=== PATIENT | female | born 1995 | race American Indian/Alaskan Native ===

== ENCOUNTER 2017-11-27 07:54 | Emergency (ER) | payer OTHER ==
[2017-11-27 09:01] VITALS: BP 123/83
[2017-11-27 09:45] LABS: Basophils # (Auto) 0.1 K/mm3 (0.0-0.1); Basophils % (Auto) 0.4 % (0.0-1.8); Eosinophils % (Auto) 0.1 % (0.0-4.3); Hematocrit 40.7 % (30.3-42.9); Hemoglobin 13.6 gm/dl (10.1-14.3); Lymphocytes # (Auto) 0.7 K/mm3 (1.2-5.4); Lymphocytes % (Auto) 5.9 % (13.4-35.0); Mean Corpuscular HGB Conc 33 % (30-34); Mean Corpuscular Hemoglobin 30 pg (28-32); Mean Corpuscular Volume 89 fl (79-97); Monocytes # (Auto) 0.6 K/mm3 (0.0-0.8); Monocytes % (Auto) 4.7 % (0.0-7.3); Platelet Count 189 K/mm3 (140-440); Red Blood Count 4.55 M/mm3 (3.65-5.03); Red Cell Distribution Width 12.8 % (13.2-15.2)
[2017-11-27 10:04] LABS: Alanine Aminotransferase 8 units/L (7-56); Albumin 4.6 g/dL (3.9-5); BUN/Creatinine Ratio 20; Blood Urea Nitrogen 10 mg/dL (7-17); Calcium 8.8 mg/dL (8.4-10.2); Hemolysis Index 9
[2017-11-27] MEDS ORDERED: ZOFRAN ODT PO ONE (11:22)
[2017-11-27] MEDS ORDERED: TYLENOL PO ONE (11:22)
--- NOTE | 2017-11-27 11:39 | Emergency Department Report ---
HPI - General Chief Complaint: Abdominal Pain Time Seen by Provider: 11/27/17 11:22 - HPI HPI: The patient is 22-year-old female presents for evaluation of abdominal pain. The patient reports epigastric abdominal pain since 4 AM this morning, constant since onset, crampy in quality, moderate, 5/10 in severity, exacerbated with retching. She is also associated nausea and vomiting 2 episodes, and loose watery stools. The patient denies chest pain, dyspnea, blood in the stools, black tarry stools, recent antibiotic use, travel outside the country, exposure to raw or uncooked seafood, reheated foods, untreated water, unpasteurized dairy , or reptilian pets including lizards, frogs, or snakes. ED Past Medical Hx - Past Medical History Previous Medical History?: No - Surgical History Past Surgical History?: No - Social History Smoking Status: Never Smoker Substance Use Type: Alcohol - Medications Home Medications: Home Medications Medication Instructions Recorded Confirmed Last Taken Type Acetaminophen/Codeine [Tylenol #3] 1 tab PO Q6H PRN #10 tab 11/27/17 Unknown Rx Ondansetron [Zofran TAB] 4 mg PO Q8HR PRN #20 tablet 11/27/17 Unknown Rx ED Review of Systems ROS: Stated complaint: ABDOMINAL PAIN Other details as noted in HPI Constitutional: denies: fever ENT: denies: throat or neck pain Respiratory: denies: cough, shortness of breath Cardiovascular: denies: chest pain Endocrine: denies unexplained weight loss or gain Gastrointestinal: reports abdominal pain, nausea Genitourinary: denies: dysuria Musculoskeletal: denies: leg swelling Skin: denies: rash Neurological: denies: headache Hematological/Lymphatic: denies: easy bleeding or easy bruising Psych: denies sadness or hopelessness Physical Exam - Physical Exam Vital Signs: Vital Signs 11/27/17 08:59 Temperature 98.4 F Pulse Rate 93 H Respiratory 16 Rate Blood Pressure 123/83 O2 Sat by Pulse 98 Oximetry Physical Exam: General: well-nourished, well-developed, no acute distress Head: Normocephalic, atraumatic Eyes: normal sclera ENT: Mucous membranes are pale and dry Neck: No neck stiffness, no cervical adenopathy Respiratory: Breath sounds equal bilaterally, no wheezing, rales, or rhonchi Cardio: S1 and S2 present, no murmurs, rubs, gallops, capillary refill is delayed Abdomen: Normoactive bowel sounds, soft abdomen, epigastric tenderness to palpation present, no rigidity, no guarding or rebound tenderness Chest WALL/Back: no CVA tenderness with percussion Musc: No pitting edema Skin: No rash Neuro: no facial drooping, normal speech Psych: Normal affect ED Course Vital Signs 11/27/17 08:59 Temperature 98.4 F Pulse Rate 93 H Respiratory 16 Rate Blood Pressure 123/83 O2 Sat by Pulse 98 Oximetry ED Medical Decision Making - Lab Data Result diagrams: 11/27/17 09:31 11/27/17 09:31 - Medical Decision Making The patient was seen and examined by myself. The patient is placed on a monitoring analyst and continuous pulse ox. On initial evaluation, the patient was found to be in no distress. Evaluation orders are placed. The patient is given a tablet of Zofran for nausea and Tylenol for pain. Lab results were non-concerning including mild leukocytosis, WBC 12, and nml hemoglobin, hematocrit, electrolytes, renal function, LFTs, lipase, urinalysis, and negative test. Evaluation findings are consistent with likely gastroenteritis. The patient was reevaluated and reported that their symptoms were markedly improved. The patient is stable for discharge with outpatient follow-up. The patient is given follow-up and return instructions. The patient expressed understanding and agreed with the plan. The patient is discharged in stable condition. Critical care attestation.: If time is entered above; I have spent that time in minutes in the direct care of this critically ill patient, excluding procedure time. ED Disposition Clinical Impression: Abdominal pain, acute, epigastric, Nausea and vomiting in adult Diarrhea Qualifiers: Diarrhea type: unspecified type Qualified Code(s): R19.7 - Diarrhea, unspecified Disposition: - TO HOME OR SELFCARE Is pt being admited?: No Does the pt Need Aspirin: No Condition: Stable Instructions: Gastroenteritis (ED), Food Poisoning (ED), Abdominal Pain (ED), Nutrition Tips for Relief of Diarrhea (ED) Prescriptions: Acetaminophen/Codeine [Tylenol #3] 1 tab PO Q6H PRN #10 tab PRN Reason: Pain Ondansetron [Zofran TAB] 4 mg PO Q8HR PRN #20 tablet PRN Reason: Nausea Referrals: PRIMARY CARE, [Primary Care Provider] - 3-5 Days Time of Disposition: 12:00
[2017-11-27 11:48] LABS: HCG Qualitative,Urine Negative (Negative)
[2017-11-27 11:51] LABS: Bacteria,Urine 1+ /HPF (Negative); Bilirubin,Urine NEG (Negative); Blood,Urine NEG (Negative); Color,Urine Yellow (Yellow); Mucus,Urine 2+ /HPF; Nitrite,Urine NEG (Negative); Protein,Urine <15 mg/dL mg/dL (Negative); Urobilinogen,Urine < 2.0 mg/dL (<2.0)
== END 2017-11-27 12:11 | disposition home or self-care (01) ==
LOC: ED 07:54
DX: R10.13 Epigastric pain (principal); R19.7 Diarrhea, unspecified; R11.2 Nausea with vomiting, unspecified
CPT/HCPCS: 36415; 80053; 81001; 81025; 85025; 99283; Q0162

== ENCOUNTER 2019-02-15 17:52 | Outpatient (CLI) | payer MEDICAID ==
[2019-02-15] MEDS ORDERED: LACTATED RINGERS 500 ML IV ONE (18:11)
[2019-02-15 18:24] VITALS: BP 110/64
[2019-02-15 19:04] LABS: Bacteria,Urine 2+ /HPF (Negative); Bilirubin,Urine NEG (Negative); Blood,Urine NEG (Negative); Color,Urine Colorless (Yellow); Protein,Urine <15 mg/dL mg/dL (Negative); Urobilinogen,Urine < 2.0 mg/dL (<2.0)
== END 2019-02-15 19:48 | disposition home or self-care (01) ==
LOC: TRG 17:52
PROVIDERS: ATTEND Obstetrics & Gynecology
DX: O60.03 Preterm labor without delivery, third trimester (principal); O26.893 Other specified pregnancy related conditions, third trimester; M79.605 Pain in left leg; Z3A.31 31 weeks gestation of pregnancy
CPT/HCPCS: 81001; J7120; 59025

== ENCOUNTER 2019-04-09 08:05 | Outpatient (CLI) | payer MEDICAID ==
[2019-04-09 08:37] VITALS: BP 106/68
== END 2019-04-09 11:03 | disposition home or self-care (01) ==
LOC: TRG 08:05
PROVIDERS: ATTEND Obstetrics & Gynecology
DX: O47.1 False labor at or after 37 completed weeks of gestation (principal); Z3A.38 38 weeks gestation of pregnancy

== ENCOUNTER 2019-04-10 01:16 | Inpatient (IN) | payer MEDICAID ==
[2019-04-10] MEDS ORDERED: LACTATED RINGERS 1,000 ML ONE (02:12)
[2019-04-10] MEDS ORDERED: STADOL IV PRN (02:36)
[2019-04-10] MEDS ORDERED: BRETHINE IVP PRN (02:36)
[2019-04-10] MEDS ORDERED: BRETHINE SUB-Q PRN (02:36)
[2019-04-10] MEDS ORDERED: SUBLIMAZE IV PRN (02:36)
[2019-04-10] MEDS ORDERED: XYLOCAINE 2% INFILTRATI ONE ×3 (02:36→06:18)
[2019-04-10] MEDS ORDERED: NARCAN 0.4 MG/1 ML IV PRN (02:36)
[2019-04-10] MEDS ORDERED: MINERAL OIL PO PRN (02:36)
[2019-04-10] MEDS ORDERED: ZOFRAN IV PRN ×2 (02:36→09:26)
--- NOTE | 2019-04-10 02:42 | History and Physical Report ---
History of Present Illness Date of examination: 04/10/19 Date of admission: 04/10/19 02:28 Chief complaint: contractions History of present illness: Pt is a 24 year old female SHYANNE 04/18/19 at 38w6d who presents with regular contractions and advanced cervical dilation of 8 cm. She denies leakage of fluid or vaginal bleeding. She has had care at [facility] since 11 wks complicated by chlamydia treated with negative test of cure. She is GBS negative. Past History Past Medical History: no pertinent history Past Surgical History: no surgical history [employer]ER History: chlamydia (treated with negative test of cure ) Family/Genetic History: cancer Social history: no significant social history - Obstetrical History Expected Date of Delivery: 04/18/19 Actual Gestation: 38 Week(s) 6 Day(s) : 2 Para: 0 Hx # Term Pregnancies: 0 Number of Pregnancies: 0 Spontaneous Abortions: 0 Induced : 1 Number of Living Children: 0 Medications and Allergies Allergies Allergy/AdvReac Type Severity Reaction Status Date / Time No Known Allergies Allergy Verified 11/27/17 09:02 Home Medications Medication Instructions Recorded Confirmed Last Taken Type Acetaminophen/Codeine [Tylenol #3] 1 tab PO Q6H PRN #10 tab 11/27/17 Unknown Rx Ondansetron [Zofran TAB] 4 mg PO Q8HR PRN #20 tablet 11/27/17 Unknown Rx Review of Systems All systems: negative - Vital Signs Vital signs: Vital Signs Pulse BP 103 H 126/70 04/10/19 01:49 04/10/19 01:49 Temp Pulse Resp BP Pulse Ox 98.3 F 103 H 18 126/70 04/10/19 01:51 04/10/19 01:51 04/10/19 01:51 04/10/19 01:51 - Physical Exam Breasts: Positive: deferred Cardiovascular: Regular rate Lungs: Positive: Clear to auscultation Abdomen: Positive: soft (gravid ) Genitourinary (Female): Positive: normal external genitalia Uterus: Positive: enlarged (gravid ) Extremities: Positive: normal - Obstetrical FHR: auscultation normal Uterine Contraction Monitor Mode: External Cervical Dilatation: 8 Cervical Effacement Percentage: 90 (bulging bag ) station: -1 Uterine Contraction Pattern: Regular Uterine Tone Measurement Phase: Resting Uterine Contraction Intensity: Strong/Firm Results All other labs normal. Assessment and Plan A: IUP at 38w6d Active labor Chlamydia treated with negative test of cure GBS Negative P: Admit to labor and delivery Pt requests epidural Routine intrapartum care
[2019-04-10 02:54] LABS: Hematocrit 30.9 % (30.3-42.9); Hemoglobin 10.2 gm/dl (10.1-14.3); Mean Corpuscular HGB Conc 33 % (30-34); Mean Corpuscular Volume 79 fl (79-97); Platelet Count 153 K/mm3 (140-440); Red Cell Distribution Width 15.3 % (13.2-15.2)
[2019-04-10] MEDS ORDERED: PITOCin/NS 20 UNIT/1000ML DRIP 20 UNITS/1,000 ML BAG IV SCH ×2 (03:00→09:26)
[2019-04-10] MEDS ORDERED: LACTATED RINGERS 1,000 ML IV SCH (03:00)
[2019-04-10] MEDS ORDERED: PITOCin/NS 30 UNIT/500ML 30 UNITS/500 ML BAG IV SCH (03:00)
[2019-04-10] MEDS ORDERED: NARCAN 2 MG/2 ML IV PRN (03:27)
--- NOTE | 2019-04-10 03:27 | Anesthesia Consultation ---
Anesthesia Consult and Med Hx Date of service: 04/10/19 - Airway Anesthetic Teeth Evaluation: Good ROM Head & Neck: Adequate Mental/Hyoid Distance: Adequate Mallampati Class: Class II Intubation Access Assessment: Probably Good - Pre-Operative Health Status ASA Pre-Surgery Classification: ASA2 Proposed Anesthetic Plan: Epidural, Spinal - Pulmonary Hx Asthma: No COPD: No Hx Pneumonia: No - Cardiovascular System Hx Hypertension: No - Central Nervous System Hx Seizures: No Hx Psychiatric Problems: No - Endocrine Hx Renal Disease: No Hx End Stage Renal Disease: No Hx Hypothyroidism: No Hx Hyperthyroidism: No - Hematic Hx Anemia: No Hx Sickle Cell Disease: No - Other Systems Hx Alcohol Use: No
--- NOTE | 2019-04-10 03:50 | Event Note ---
Date: 04/10/19 Pt comfortable with epidural. Category II tracing. SVE: /-1. AROM-clear. Routine intrarpartum management.
[2019-04-10] MEDS ORDERED: fentaNYL-BUPIV 2 MCG/ML-0.125% 200 MCG/100 ML BAG EPIDURAL SCH (04:00)
[2019-04-10] MEDS ORDERED: METHERGINE IM ONE ×2 (05:55→06:18)
--- NOTE | 2019-04-10 06:19 | Procedure Note ---
OB Delivery Note - Delivery Date of Delivery: 04/10/19 Surgeon: TODD MCCABE Estimated blood loss: other (600 mL) - Vaginal Delivery presentation: vertex Delivery position: OA Intrapartum events: mult.variable deceleratio, hemorrhage, uterine atony (Given Methergine 0.2 mg IM ) Delivery induction: none Delivery augmentation: rupture of membranes, pitocin Delivery monitor: external FHT, external uterine Route of delivery: Delivery placenta: spontaneous Delivery cord: 3 umbilical vessels Episiotomy: none Delivery laceration: 2nd degree Delivery repair: vicryl Anesthesia: local, epidural - Infant A at 1 minute: 8 at 5 minutes: 9 Infant Gender: Male (2282g (6lb 6oz) @ 0535 am)
[2019-04-10] MEDS ORDERED: PHENERGAN PR PRN (09:26)
[2019-04-10] MEDS ORDERED: DERMOPLAST TP PRN (09:26)
[2019-04-10] MEDS ORDERED: TUCKS PAD TP PRN (09:26)
[2019-04-10] MEDS ORDERED: PHENERGAN PO PRN (09:26)
[2019-04-10] MEDS ORDERED: SODIUM CHLORIDE FLUSH SYRINGE 10 ML IV NR (09:26)
[2019-04-10] MEDS ORDERED: BENADRYL PO PRN (09:26)
[2019-04-10] MEDS ORDERED: LANSINOH TP PRN (09:26)
[2019-04-10] MEDS ORDERED: TYLENOL PO PRN (09:26)
[2019-04-10] MEDS: NORCO 5/325 PO PRN ×2 (09:55→21:45)
[2019-04-10] MEDS: FEOSOL PO SCH ×2 (09:55→21:45)
[2019-04-10] MEDS ORDERED: DULCOLAX PR PRN (11:00)
[2019-04-10] MEDS: COLACE PO SCH ×2 (11:00→21:45)
[2019-04-10 17:43] LABS: Hematocrit 24.6 % (30.3-42.9); Hemoglobin 8.4 gm/dl (10.1-14.3)
[2019-04-10] MEDS: IBUPROFEN PO SCH (18:35)
[2019-04-10] MEDS ORDERED: MILK OF MAGNESIA PO PRN (22:00)
[2019-04-11] MEDS: IBUPROFEN PO SCH ×4 (00:44→20:21)
[2019-04-11] MEDS ORDERED: M-M-R II VACCINE SUB-Q ONE (08:00)
[2019-04-11] MEDS ORDERED: BOOSTRIX IM ONE (09:00)
--- NOTE | 2019-04-11 12:04 | Progress Note ---
Assessment and Plan A: 1. PPD 1 2. Vital signs stable 3. Iron deficiency anemia 4. Need for support P: Continue current care, anticipate discharge to home tomorrow. consult ordered Subjective - Subjective Date of service: 04/11/19 Principal diagnosis: day 1 Interval history: Pt is day 1 s/p at term and PPH, EBL 600cc. Patient reports: appetite normal, voiding normally, pain well controlled, ambulating normally : doing well, bottle feeding (Pt desires to breast feed) Objective - Vital Signs Latest vital signs: Vital Signs Temp Pulse Resp BP Pulse Ox 04/11/19 09:49 97.9 F 92 H 18 117/71 99 04/11/19 06:31 18 04/11/19 01:44 18 04/11/19 00:44 18 04/10/19 23:44 98.2 F 94 H 20 103/64 97 04/10/19 22:45 18 04/10/19 21:45 18 04/10/19 19:35 18 04/10/19 16:11 98.0 F 74 18 111/73 99 04/10/19 12:24 98.2 F 78 22 111/64 97 Intake and Output 04/10/19 04/11/19 04/11/19 23:59 07:59 15:59 Intake Total 960 960 Output Total 550 Balance 410 960 Intake: Oral 480 960 Intake, Free Water 480 Output: Urine 550 Void 550 Other: Total, Intake Amount 240 720 Total, Output Amount 550 # Voids Void 1 2 - Exam Breasts: Present: deferred Lungs: Present: Normal air movement Abdomen: Present: normal appearance, soft Uterus: Present: normal, firm, fundal height at umbilicus Extremities: Present: normal - Labs Labs: Abnormal lab results 04/10/19 Range/Units 17:30 Hgb 8.4 L (10.1-14.3) gm/dl Hct 24.6 L D (30.3-42.9) %
--- NOTE | 2019-04-11 12:56 | Discharge Summary ---
Providers - Providers Date of Admission: 04/10/19 02:28 Date of discharge: 04/12/19 Attending physician: TODD MCCABE 04/11/19 10:39 Consult to V Belt Inspector [CONS] Stat Reason For Exam: Primary care physician: TODD MCCABE Hospitalization Reason for admission: active labor Delivery: Episiotomy: none Laceration: 2nd degree Other procedures: none complications: uterine atony ( hemorrhage) Discharge diagnosis: IUP at term delivered Condition at discharge: Good Disposition: DC-01 TO HOME OR SELFCARE Plan - Discharge Medications Prescriptions: Docusate Sodium [Colace CAP] 100 mg PO BID #30 capsule Ferrous Sulfate [Feosol 325 MG tab] 325 mg PO BID 30 Days #60 tablet Ibuprofen [Motrin 600 MG tab] 600 mg PO Q6HR 30 Days #60 tablet Glycerin/Witch Tania Pad [Tucks Pad] 1 each TP PRN PRN #1 box PRN Reason: Hemorrhoid/cleansing/soothing - Provider Discharge Summary Additional instructions: [] Smoking cessation referral if applicable(refer to patient education folder for contact #) [] Refer to [facility] Booklet Call your doctor immediately for: * Fever > 100.5 * Heavy vaginal bleeding ( >1 pad per hour) * Severe persistent headache * Shortness of breath * Reddened, hot, painful area to leg or breast * Drainage or odor from incision. * Keep incision clean and dry at all times and follow doctor's instructions regarding bathing/showering - Follow up plan Follow up: TODD MCCABE MD [Primary Care Provider] - 6 Weeks (Please call to schedule appointment for 4-6 weeks .)
[2019-04-11] MEDS: FEOSOL PO SCH ×2 (13:01→22:14)
[2019-04-11] MEDS: COLACE PO SCH ×2 (13:01→22:14)
--- NOTE | 2019-04-11 14:33 | Post Anesthesia Evaluation ---
- Post Anesthesia Evaluation Patient Participated: Yes Airway Patent: Yes Stable Respiratory Function: Yes Nausea/Vomiting: No Temp > 96.8F: Yes Pain Manageable: Yes Adequeate Hydration: Yes Anesthesia Complications: No Block Receding Appropriately: Yes Patient on Ventilator: No
[2019-04-12] MEDS: IBUPROFEN PO SCH ×2 (06:24)
[2019-04-12 07:58] VITALS: BP 112/62
[2019-04-12] MEDS: COLACE PO SCH (09:30)
[2019-04-12] MEDS: FEOSOL PO SCH (09:30)
== END 2019-04-12 12:40 | disposition home or self-care (01) | DRG 774 ==
LOC: TRG 01:16 → LD 02:28 → OB 08:05
PROVIDERS: ADMIT Obstetrics & Gynecology; ATTEND Obstetrics & Gynecology
PROC: 10E0XZZ Delivery of Products of Conception, External Approach (ICD-10-PCS; principal; 2019-04-10)
PROC: 0KQM0ZZ Repair Perineum Muscle, Open Approach (ICD-10-PCS; 2019-04-10)
PROC: 10907ZC Drainage of Amniotic Fluid, Therapeutic from Products of Conception, Via Natural or Artificial Opening (ICD-10-PCS; 2019-04-10)
PROC: 3E0R3BZ Introduction of Anesthetic Agent into Spinal Canal, Percutaneous Approach (ICD-10-PCS; 2019-04-10)
PROC: 00HU33Z Insertion of Infusion Device into Spinal Canal, Percutaneous Approach (ICD-10-PCS; 2019-04-10)
DX: O76 Abnormality in fetal heart rate and rhythm complicating labor and delivery (principal); O72.1 Other immediate postpartum hemorrhage; Z37.0 Single live birth; O70.1 Second degree perineal laceration during delivery; O90.81 Anemia of the puerperium; D50.9 Iron deficiency anemia, unspecified; Z3A.38 38 weeks gestation of pregnancy
CPT/HCPCS: 36415; 85014; 85018; 85027; 86592; 86850; 86900; 86901; G0378; J2210; J2590; J7120

== ENCOUNTER 2021-03-15 07:01 | Emergency (ER) | payer MEDICAID, OTHER ==
[2021-03-15] MEDS ORDERED: diphenhydrAMINE 50 MG/ML VIAL IV ONE (07:23)
[2021-03-15] MEDS ORDERED: SODIUM CHLORIDE 0.9% 1000 ML 1,000 ML IV ONE (07:23)
[2021-03-15] MEDS ORDERED: METOCLOPRAMIDE 10 MG/2 ML INJ IV ONE (07:23)
[2021-03-15] MEDS ORDERED: FAMOTIDINE 20 MG/2 ML INJ IV ONE (07:23)
[2021-03-15] MEDS ORDERED: DICYCLOMINE 20 MG TAB PO ONE (07:23)
--- NOTE | 2021-03-15 08:21 | Emergency Department Report ---
ED Abdominal Pain HPI - General Chief Complaint: Abdominal Pain Stated Complaint: HEADACHE/ABDOMINAL PAIN/VOMITING Time Seen by Provider: 03/15/21 07:23 Source: patient Mode of arrival: Ambulatory Limitations: No Limitations - History of Present Illness Initial Comments: This is a 26-year-old female nontoxic, well nourished in appearance, no acute signs of distress presents to the ED with c/o of nausea and vomiting and abdominal pain 1 day. Patient describes vomiting as food content and yellow gastric acid. Patient describes abdominal pain as cramping and aching with level of 8/10 diffuse. Patient denies chest pain, short of breath, fever, he moptysis, blood in stool, chills, headache, stiff neck, numbness or tingling. Patient denies any diarrhea or constipation. Denies any blood in stool. Patient denies any recent travels. Patient denies any drug allergies or significant past medical history MD Complaint: abdominal pain -: days(s) Location: diffuse Radiation: none Migration to: no migration Severity: mild Severity scale (0 -10): 8 Quality: aching Consistency: constant Improves With: nothing Worsens With: nothing Associated Symptoms: nausea, vomiting. denies: diarrhea, fever, chills, constipation, dysuria, hematemesis, hematochezia, melena, hematuria, anorexia, syncope - Related Data Previous Rx's Medication Instructions Recorded Last Taken Type Acetaminophen/Codeine [Tylenol 1 tab PO Q6H PRN #10 tab 11/27/17 Unknown Rx /Codeine # 3 tab] Docusate Sodium [Colace CAP] 100 mg PO BID #30 capsule 04/11/19 Unknown Rx Ferrous Sulfate [Feosol 325 MG tab] 325 mg PO BID 30 Days #60 tablet 04/11/19 Unknown Rx Glycerin/ Witch Tania Pad [Tucks 1 each TP PRN PRN #1 box 04/11/19 Unknown Rx Pad] Ibuprofen [Motrin 600 MG tab] 600 mg PO Q6HR 30 Days #60 tablet 04/11/19 Unknown Rx Dicyclomine [Bentyl] 10 mg PO QID PRN #5 capsule 03/15/21 Unknown Rx Ondansetron [Zofran Odt] 4 mg PO Q8HR PRN #12 tab.rapdis 03/15/21 Unknown Rx Allergies Allergy/AdvReac Type Severity Reaction Status Date / Time No Known Allergies Allergy Verified 11/27/17 09:02 ED Review of Systems ROS: Stated complaint: HEADACHE/ABDOMINAL PAIN/VOMITING Other details as noted in HPI Constitutional: denies: chills, fever Eyes: denies: eye pain, eye discharge, vision change ENT: denies: ear pain, throat pain Respiratory: denies: cough, shortness of breath, wheezing Cardiovascular: denies: chest pain, palpitations Endocrine: no symptoms reported Gastrointestinal: abdominal pain, nausea, vomiting. denies: diarrhea, constipation, hematemesis, melena, hematochezia Genitourinary: denies: urgency, dysuria, discharge Musculoskeletal: denies: back pain, joint swelling, arthralgia Skin: denies: rash, lesions Neurological: denies: headache, weakness, paresthesias Psychiatric: denies: anxiety, depression Hematological/Lymphatic: denies: easy bleeding, easy bruising ED Past Medical Hx - Past Medical History Hx Hypertension: No Hx Congestive Heart Failure: No Hx Diabetes: No Hx Deep Vein Thrombosis: No Hx Renal Disease: No Hx Sickle Cell Disease: No Hx Seizures: No Hx Asthma: No Hx COPD: No Hx HIV: No - Social History Smoking Status: Current Every Day Smoker Substance Use Type: Alcohol - Medications Home Medications: Home Medications Medication Instructions Recorded Confirmed Last Taken Type Acetaminophen/Codeine [Tylenol 1 tab PO Q6H PRN #10 tab 11/27/17 04/11/19 Unknown Rx /Codeine # 3 tab] Docusate Sodium [Colace CAP] 100 mg PO BID #30 capsule 04/11/19 Unknown Rx Ferrous Sulfate [Feosol 325 MG tab] 325 mg PO BID 30 Days #60 tablet 04/11/19 Unknown Rx Glycerin/ Witch Tania Pad [Tucks 1 each TP PRN PRN #1 box 04/11/19 Unknown Rx Pad] Ibuprofen [Motrin 600 MG tab] 600 mg PO Q6HR 30 Days #60 tablet 04/11/19 Unknown Rx Dicyclomine [Bentyl] 10 mg PO QID PRN #5 capsule 03/15/21 Unknown Rx Ondansetron [Zofran Odt] 4 mg PO Q8HR PRN #12 tab.rapdis 03/15/21 Unknown Rx ED Physical Exam - General Limitations: No Limitations General appearance: alert, in no apparent distress - Head Head exam: Present: atraumatic, normocephalic - Eye Eye exam: Present: normal appearance - Neck Neck exam: Present: normal inspection, full ROM. Absent: tenderness, meningismus, lymphadenopathy - Respiratory Respiratory exam: Present: normal lung sounds bilaterally. Absent: respiratory distress, wheezes, rales, rhonchi, stridor, chest wall tenderness, accessory muscle use, decreased breath sounds, prolonged expiratory - Cardiovascular Cardiovascular Exam: Present: regular rate, normal rhythm, normal heart sounds. Absent: bradycardia, tachycardia, irregular rhythm, systolic murmur, diastolic murmur, rubs, gallop - GI/Abdominal GI/Abdominal exam: Present: soft, tenderness (diffuse), normal bowel sounds. Absent: distended, guarding, rebound, rigid, diminished bowel sounds - Extremities Exam Extremities exam: Present: normal inspection, full ROM - Back Exam Back exam: Present: normal inspection, full ROM. Absent: tenderness, CVA tenderness (R), CVA tenderness (L), muscle spasm, paraspinal tenderness, vertebral tenderness, rash noted - Neurological Exam Neurological exam: Present: alert, oriented X3, normal gait - Psychiatric Psychiatric exam: Present: normal affect, normal mood - Skin Skin exam: Present: warm, dry, intact, normal color. Absent: rash ED Course Vital Signs 03/15/21 03/15/21 03/15/21 07:23 07:38 09:30 Temperature 98.6 F Pulse Rate 76 Respiratory 20 Rate Blood Pressure 106/69 137/89 O2 Sat by Pulse 100 99 Oximetry Vital Signs 03/15/21 03/15/21 03/15/21 07:23 07:38 09:30 Temperature 98.6 F Pulse Rate 76 Respiratory 20 Rate Blood Pressure 106/69 137/89 O2 Sat by Pulse 100 99 Oximetry - Reevaluation(s) Reevaluation #1: 03/15/21 08:20 Patient is speaking in full sentences with no signs of distress noted. ED Medical Decision Making - Lab Data Result diagrams: 03/15/21 07:42 03/15/21 07:42 Lab Results 03/15/21 03/15/21 03/15/21 Range/Units 07:32 07:42 07:42 WBC 11.6 H (4.5-11.0) K/mm3 RBC 4.42 (3.65-5.03) M/mm3 Hgb 12.7 (10.1-14.3) gm/dl Hct 38.4 (30.3-42.9) % MCV 87 (79-97) fl MCH 29 (28-32) pg MCHC 33 (30-34) % RDW 13.6 (13.2-15.2) % Plt Count 189 (140-440) K/mm3 Lymph % (Auto) 8.0 L (13.4-35.0) % [place] % (Auto) 5.0 (0.0-7.3) % Eos % (Auto) 0.3 (0.0-4.3) % Baso % (Auto) 0.4 (0.0-1.8) % Lymph # (Auto) 0.9 L (1.2-5.4) K/mm3 [place] # (Auto) 0.6 (0.0-0.8) K/mm3 Eos # (Auto) 0.0 (0.0-0.4) K/mm3 Baso # (Auto) 0.1 (0.0-0.1) K/mm3 Seg Neutrophils % 86.3 H (40.0-70.0) % Seg Neutrophils # 10.0 H (1.8-7.7) K/mm3 Sodium 139 (137-145) mmol/L Potassium 3.8 (3.6-5.0) mmol/L Chloride 104.1 (98-107) mmol/L Carbon Dioxide 24 (22-30) mmol/L Anion Gap 15 mmol/L BUN 8 (7-17) mg/dL Creatinine 0.6 (0.6-1.2) mg/dL Estimated GFR > 60 ml/min BUN/Creatinine Ratio 13 % Glucose 83 (65-100) mg/dL Calcium 8.3 L (8.4-10.2) mg/dL Total Bilirubin 0.20 (0.1-1.2) mg/dL AST 16 (5-40) units/L ALT 9 (7-56) units/L Alkaline Phosphatase 66 (35-129) units/L Total Protein 7.3 (6.3-8.2) g/dL Albumin 4.2 (3.9-5) g/dL Albumin/Globulin Ratio 1.4 % Lipase 38 (13-60) units/L HCG, Qual (Negative) Urine Color Yellow (Yellow) Urine Turbidity Slightly-cloudy (Clear) Urine pH 5.0 (5.0-7.0) Ur Specific [place] 1.017 (1.003-1.030) Urine Protein <15 mg/dl (Negative) mg/dL Urine Glucose (UA) Neg (Negative) mg/dL Urine Ketones Neg (Negative) mg/dL Urine Blood Neg (Negative) Urine Nitrite Neg (Negative) Urine Bilirubin Neg (Negative) Urine Urobilinogen < 2.0 (<2.0) mg/dL Ur Leukocyte Esterase Neg (Negative) Urine WBC (Auto) 1.0 (0.0-6.0) /HPF Urine RBC (Auto) 1.0 (0.0-6.0) /HPF U Epithel Cells (Auto) 3.0 (0-13.0) /HPF Urine Bacteria (Auto) 2+ (Negative) /HPF Urine Mucus Few /HPF 03/15/21 Range/Units 07:42 WBC (4.5-11.0) K/mm3 RBC (3.65-5.03) M/mm3 Hgb (10.1-14.3) gm/dl Hct (30.3-42.9) % MCV (79-97) fl MCH (28-32) pg MCHC (30-34) % RDW (13.2-15.2) % Plt Count (140-440) K/mm3 Lymph % (Auto) (13.4-35.0) % [place] % (Auto) (0.0-7.3) % Eos % (Auto) (0.0-4.3) % Baso % (Auto) (0.0-1.8) % Lymph # (Auto) (1.2-5.4) K/mm3 [place] # (Auto) (0.0-0.8) K/mm3 Eos # (Auto) (0.0-0.4) K/mm3 Baso # (Auto) (0.0-0.1) K/mm3 Seg Neutrophils % (40.0-70.0) % Seg Neutrophils # (1.8-7.7) K/mm3 Sodium (137-145) mmol/L Potassium (3.6-5.0) mmol/L Chloride (98-107) mmol/L Carbon Dioxide (22-30) mmol/L Anion Gap mmol/L BUN (7-17) mg/dL Creatinine (0.6-1.2) mg/dL Estimated GFR ml/min BUN/Creatinine Ratio % Glucose (65-100) mg/dL Calcium (8.4-10.2) mg/dL Total Bilirubin (0.1-1.2) mg/dL AST (5-40) units/L ALT (7-56) units/L Alkaline Phosphatase (35-129) units/L Total Protein (6.3-8.2) g/dL Albumin (3.9-5) g/dL Albumin/Globulin Ratio % Lipase (13-60) units/L HCG, Qual Negative (Negative) Urine Color (Yellow) Urine Turbidity (Clear) Urine pH (5.0-7.0) Ur Specific [place] (1.003-1.030) Urine Protein (Negative) mg/dL Urine Glucose (UA) (Negative) mg/dL Urine Ketones (Negative) mg/dL Urine Blood (Negative) Urine Nitrite (Negative) Urine Bilirubin (Negative) Urine Urobilinogen (<2.0) mg/dL Ur Leukocyte Esterase (Negative) Urine WBC (Auto) (0.0-6.0) /HPF Urine RBC (Auto) (0.0-6.0) /HPF U Epithel Cells (Auto) (0-13.0) /HPF Urine Bacteria (Auto) (Negative) /HPF Urine Mucus /HPF - Radiology Data [facility] [address] [place] [address] Cat Scan Report Signed Patient: MALINDA PÉREZ MR#: [id number] : 1995 Acct:[id number] Age/Sex: 26 / F ADM Date: 03/15/21 Loc: ED Attending Dr: Ordering Physician: ELIJAH MIRELES NP Date of Service: 03/15/21 Procedure(s): CT abdomen pelvis w con Accession Number(s): [id number] cc: ELIJAH MIRELES NP CT ABDOMEN AND PELVIS WITH CONTRAST INDICATION / CLINICAL INFORMATION: MAIN. TECHNIQUE: Axial CT images were obtained through the abdomen and pelvis after 100 cc Omni [address] scans at this location are performed using CT dose reduction for ALARA by means of automated exposure control. COMPARISON: None available. FINDINGS: LOWER CHEST: No significant abnormality. HEPATOBILIARY: No significant abnormality. PANCREAS/SPLEEN/ADRENALS: No significant abnormality. GENITOURINARY: No significant abnormality. GASTROINTESTINAL/MESENTERY: Mildly thickened, fluid- filled distal loops of small bowel and fluid in the proximal/transverse colon suggests mild enteritis or diarrheal illness. No bowel obstruction. Appendix demonstrates no significant abnormality. No free air or significant free fluid. RETROPERITONEUM: No significant adenopathy. REPRODUCTIVE ORGANS: No significant abnormality. VASCULAR: No significant abnormality. BODY WALL: No significant abnormality. SKELETAL SYSTEM: No significant abnormality. IMPRESSION: 1. Mild enteritis or diarrhea illness, as described above. No evidence of bowel obstr uction. Signer Name: Evelyn Brown MD Signed: 03/15/2021 9:59 AM Workstation Name: [id number] Transcribed By: Dictated By: EVELYN BROWN III Electronically Authenticated By: EVELYN BROWN III Signed Date/Time: 03/15/21958 DD/ 9 TD/TT: Print Cancel - Medical Decision Making This is a 26-year-old female that presents with abdominal pain. Patient is stable and was examined by me. Labs obtained. UA obtained. CT of abdomen o btained and dictated by the radiologist. Patient is notified of the report with no questions noted by the patient. Vital signs are stable prior to discharge. Patient received medical treatment in the ED which patient stated symptoms has resolved and subsided. Was instructed note to operate any machinery due to possible drowsiness and stated someone will drive the patient home. A by mouth challenge has been obtained and patient tolerated well with no nausea vomiting. Patient was also instructed to Follow-up with a primary care doctor in 3-5 days or if symptoms worsen and continue return to emergency room as soon as possible. At time of discharge, the patient does not seem toxic or ill in appearance. No acute signs of distress noted. Patient agrees to discharge treatment plan of care. No further questions noted by the patient. Critical care attestation.: If time is entered above; I have spent that time in minutes in the direct care of this critically ill patient, excluding procedure time. ED Disposition Clinical Impression: Nausea & vomiting Qualifiers: Vomiting type: unspecified Vomiting Intractability: non-intractable Qualified Code(s): R11.2 - Nausea with vomiting, unspecified Abdominal pain Qualifiers: Abdominal location: generalized Qualified Code(s): R10.84 - Generalized abdominal pain Disposition: TO HOME OR SELFCARE Is pt being admited?: No Does the pt Need Aspirin: No Condition: Stable Instructions: Abdominal Pain (ED), Nausea and Vomiting, Adult, Abdominal Pain, Adult Additional Instructions: Follow-up with a primary care doctor in 3-5 days or if symptoms worsen and continue return to emergency room as soon as possible. Prescriptions: Dicyclomine [Bentyl] 10 mg PO QID PRN #5 capsule PRN Reason: Abdominal pain Ondansetron [Zofran Odt] 4 mg PO Q8HR PRN #12 tab.rapdis PRN Reason: Nausea Referrals: PRIMARY CAREMD [Primary Care Provider] - 3-5 Days HILLARY JOVEL MD [Staff Physician] - 3-5 Days [facility] [Provider Group] - 3-5 Days Forms: Work/School Release Form(ED) Time of Disposition: 10:31
[2021-03-15 08:26] LABS: Basophils # (Auto) 0.1 K/mm3 (0.0-0.1); Basophils % (Auto) 0.4 % (0.0-1.8); Eosinophils % (Auto) 0.3 % (0.0-4.3); Hematocrit 38.4 % (30.3-42.9); Hemoglobin 12.7 gm/dl (10.1-14.3); Lymphocytes # (Auto) 0.9 K/mm3 (1.2-5.4); Mean Corpuscular HGB Conc 33 % (30-34); Mean Corpuscular Volume 87 fl (79-97); Monocytes # (Auto) 0.6 K/mm3 (0.0-0.8); Platelet Count 189 K/mm3 (140-440); Red Blood Count 4.42 M/mm3 (3.65-5.03); Red Cell Distribution Width 13.6 % (13.2-15.2)
[2021-03-15 08:26] LABS: Bacteria,Urine 2+ /HPF (Negative); Bilirubin,Urine NEG (Negative); Blood,Urine NEG (Negative); Color,Urine Yellow (Yellow); Mucus,Urine FEW /HPF; Protein,Urine <15 mg/dL mg/dL (Negative); Urobilinogen,Urine < 2.0 mg/dL (<2.0)
[2021-03-15 09:12] LABS: Alanine Aminotransferase 9 units/L (7-56); Albumin 4.2 g/dL (3.9-5); Blood Urea Nitrogen 8 mg/dL (7-17); Calcium 8.3 mg/dL (8.4-10.2); Hemolysis Index 1
[2021-03-15 09:28] LABS: BUN/Creatinine Ratio 13
[2021-03-15 09:35] VITALS: BP 137/89
--- NOTE | 2021-03-15 10:04 | Cat Scan Report ---
CT ABDOMEN AND PELVIS WITH CONTRAST INDICATION / CLINICAL INFORMATION: MAIN. TECHNIQUE: Axial CT images were obtained through the abdomen and pelvis after 100 cc Omni [address] scans at this location are performed using CT dose reduction for ALARA by means of automated expos ure control. COMPARISON: None available. FINDINGS: LOWER CHEST: No significant abnormality. HEPATOBILIARY: No significant abnormality. PANCREAS/SPLEEN/ADRENALS: No significant abnormality. GENITOURINARY: No significant abnormality. GASTROINTESTINAL/MESENTERY: Mildly thickened, fluid-filled distal loops of small bowel and fluid in t he proximal/transverse colon suggests mild enteritis or diarrheal illness. No bowel obstruction. Appe ndix demonstrates no significant abnormality. No free air or significant free fluid. RETROPERITONEUM: No significant adenopathy. REPRODUCTIVE ORGANS: No significant abnormality. VASCULAR: No significant abnormality. BODY WALL: No significant abnormality. SKELETAL SYSTEM: No significant abnormality. IMPRESSION: 1. Mild enteritis or diarrhea illness, as described above. No evidence of bowel obstruction. Signer Name: Jey Brown MD Signed: 03/15/2021 9:59 AM Workstation Name: [id number]
== END 2021-03-15 10:43 | disposition home or self-care (01) ==
LOC: ED 07:01
DX: R11.2 Nausea with vomiting, unspecified (principal); R10.84 Generalized abdominal pain; F17.200 Nicotine dependence, unspecified, uncomplicated; Z72.89 Other problems related to lifestyle; Z79.899 Other long term (current) drug therapy
CPT/HCPCS: 36415; 74177; 80053; 81001; 83690; 84703; 85025; 96361; 96374; 96375; 99284; J1200; J2765; J7030; Q9967